=== PATIENT | female | born 1960 | race American Indian/Alaskan Native ===

== ENCOUNTER 2017-10-23 10:02 | Outpatient (CLI) | payer BC ==
--- NOTE | 2017-10-24 13:53 | Mammography Report ---
BILATERAL DIGITAL SCREENING MAMMOGRAM with CAD : 10/23/17 10:02:00 CLINICAL: Routine screening. COMPARISON:06/07/16 FINDINGS: The breasts are heterogeneously dense, which may obscure small masses.Left inner biopsy clip. No mass, architectural distortion or suspicious calcifications. IMPRESSION: No mammographic evidence of malignancy. BI-RADS CATEGORY: 2 -- Benign RECOMMENDATION: Routine mammographic screening in one year. COMMENT: Patient follow-up letters are generated by our [email or web address] application.
== END 2017-10-23 10:03 | disposition home or self-care (01) ==
LOC: SPVWC 10:02
PROVIDERS: ATTEND Internal Medicine
DX: Z12.31 Encounter for screening mammogram for malignant neoplasm of breast (principal)
CPT/HCPCS: 77067; G0202

== ENCOUNTER 2018-10-30 13:06 | Outpatient (CLI) | payer BC ==
--- NOTE | 2018-10-30 15:35 | Mammography Report ---
BILATERAL DIGITAL SCREENING MAMMOGRAM with CAD : 10/30/18 13:06:00 CLINICAL: Routine screening. COMPARISON:10/23/17 FINDINGS: The breasts are heterogeneously dense, which may obscure small masses.A left upper biopsy clip. A few scattered bilateral benign calcifications. No mass, architectural distortion or suspicious calcifications. IMPRESSION: No mammographic evidence of malignancy. BI-RADS CATEGORY: 2 -- Benign RECOMMENDATION: Routine mammographic screening in one year. COMMENT: Patient follow-up letters are generated by our [employer] application.
== END 2018-10-30 13:07 | disposition home or self-care (01) ==
LOC: SPVWC 13:06
PROVIDERS: ATTEND Internal Medicine
DX: Z12.31 Encounter for screening mammogram for malignant neoplasm of breast (principal)
CPT/HCPCS: 77067

== ENCOUNTER 2019-12-20 10:34 | Outpatient (CLI) | payer BC ==
--- NOTE | 2019-12-20 11:50 | Mammography Report ---
LEFT DIGITAL DIAGNOSTIC MAMMOGRAM WITH CAD 12/20/2019 LEFT COMPLETE BREAST ULTRASOUND INDICATION: Recall to evaluate a mammographic asymmetry with calcifications. ABNORMAL MAMMOGRAM TECHNIQUE: Digital left mammographic imaging was performed. Magnification views were obtained. Compl ete ultrasound of all four (4) quadrants was performed. This examination was interpreted with the hoda efit of Computer-Aided Detection (CAD) analysis. COMPARISON: 11/02/2019 and 10/30/2018 mammograms FINDINGS: Breast Density: The breasts are heterogeneously dense, which may obscure small masses. MAMMOGRAPHIC FINDINGS: Spot magnification views demonstrate an oval partially circumscribed mass at 6 :00. A few punctate and amorphous calcifications with benign morphology adjacent to the mass. ULTRASOUND FINDINGS: Complete sonographic evaluation of all 4 quadrants and retroareolar region was p erformed. Ultrasound demonstrated fibrocystic mass with and oval smooth anechoic cyst at 6:00 3 cm from the nipple measuring 1.3 x 0.9 x 1.5 cm. Calcifications are identified adjacent to the cyst. In addition, an irregular shadowing mass is identified at 11:00 2 cm from the nipple measuring 1.3 x 0.8 x 0.9 cm. IMPRESSION: 1. A suspicious 1.3 cm shadowing mass at 11:00 2 cm from the nipple. Recommend ultrasound-guided need le biopsy. 2. A benign fibrocystic mass with a dominant 1.3 cm cyst at 6:00 3 cm from the nipple. This correlate s with the mammographic finding identified at screening. I discussed the findings and the recommendation for needle biopsy of the left breast with the patient at the time of the exam. Follow up recommendation: Biopsy BI-RADS Category 4: Suspicious for Malignancy. A "normal" or negative report should not discourage follow up or biopsy of a clinically significant f inding. A written summary of these findings will be mailed to the patient. The patient will be entered into a mammography reporting system which will generate a reminder letter for the patient's next appointmen t at the appropriate interval. According to the [employer], yearly mammograms are recommended starting at age 40 and continuing as long as a woman is in good health. Breast MRI is recommended for women with an lalita roximately 20-25% or greater lifetime risk of breast cancer, including women with a strong family his tory of breast or ovarian cancer and women who have been treated for Hodgkin's disease. Signer Name: Alpesh Henning MD Signed: 12/20/2019 11:45 AM Workstation Name: [id number]
--- NOTE | 2019-12-20 16:04 | Ultrasound Report ---
LEFT DIGITAL DIAGNOSTIC MAMMOGRAM WITH CAD 12/20/2019 LEFT COMPLETE BREAST ULTRASOUND INDICATION: Recall to evaluate a mammographic asymmetry with calcifications. ABNORMAL MAMMOGRAM TECHNIQUE: Digital left mammographic imaging was performed. Magnification views were obtained. Comple te ultrasound of all four (4) quadrants was performed. This examination was interpreted with the bene fit of Computer-Aided Detection (CAD) analysis. COMPARISON: 11/02/2019 and 10/30/2018 mammograms FINDINGS: Breast Density: The breasts are heterogeneously dense, which may obscure small masses. MAMMOGRAPHIC FINDINGS: Spot magnification views demonstrate an oval partially circumscribed mass at 6 :00. A few punctate and amorphous calcifications with benign morphology adjacent to the mass. ULTRASOUND FINDINGS: Complete sonographic evaluation of all 4 quadrants and retroareolar region was p erformed. Ultrasound demonstrated fibrocystic mass with and oval smooth anechoic cyst at 6:00 3 cm fr om the nipple measuring 1.3 x 0.9 x 1.5 cm. Calcifications are identified adjacent to the cyst. In ad dition, an irregular shadowing mass is identified at 11:00 2 cm from the nipple measuring 1.3 x 0.8 x 0.9 cm. IMPRESSION: 1. A suspicious 1.3 cm shadowing mass at 11:00 2 cm from the nipple. Recommend ultrasoun d-guided needle biopsy. 2. A benign fibrocystic mass with a dominant 1.3 cm cyst at 6:00 3 cm from t he nipple. This correlates with the mammographic finding identified at screening. I discussed the findings and the recommendation for needle biopsy of the left breast with the patient at the time of the exam. Follow up recommendation: Biopsy BI-RADS Category 4: Suspicious for Malignancy. A "normal" or negative report should not discourage follow up or biopsy of a clinically significant f inding. A written summary of these findings will be mailed to the patient. The patient will be entered into a mammography reporting system which will generate a reminder letter for the patient's next appointmen t at the appropriate interval. According to the [employer], yearly mammograms are recommended starting at age 40 and continuing as long as a woman is in good health. Breast MRI is recommended for women with an appr oximately 20-25% or greater lifetime risk of breast cancer, including women with a strong family hist ory of breast or ovarian cancer and women who have been treated for Hodgkin's disease. Signer Name: Alpesh Henning MD Signed: 12/20/2019 4:00 PM Workstation Name: [id number]
== END 2019-12-20 10:35 | disposition home or self-care (01) ==
LOC: SPVWC 10:34
PROVIDERS: ATTEND Internal Medicine
DX: R92.8 Other abnormal and inconclusive findings on diagnostic imaging of breast (principal); N60.02 Solitary cyst of left breast

== ENCOUNTER 2020-01-10 12:33 | Outpatient (CLI) | payer BC ==
--- NOTE | 2020-01-10 13:59 | Ultrasound Report ---
DIGITAL DIAGNOSTIC MAMMOGRAM WITH CAD, 01/10/2020 INDICATION: Immediately after ultrasound-guided needle biopsy for clip placement. TECHNIQUE: Digital left mammographic imaging was performed. This examination was interpreted with the benefit of Computer-aided Detection analysis. COMPARISON: 12/20/2019 FINDINGS: Breast Density: The breasts are heterogeneously dense, which may obscure small masses. A new biopsy clip is identified in the upper inner quadrant and the clip position is concordant with the ultrasound finding. The clip is adjacent to a previously placed clip at the site of benign biopsy performed by Dr. Tom more than 5 years ago. IMPRESSION: Concordant clip placement. Follow up recommendation: No recall. Post biopsy imaging. A "normal" or negative report should not discourage follow up or biopsy of a clinically significant f inding. A written summary of these findings will be mailed to the patient. The patient will be entered into a mammography reporting system which will generate a reminder letter for the patient's next appointmen t at the appropriate interval. According to the [employer], yearly mammograms are recommended starting at age 40 and continuing as long as a woman is in good health. Breast MRI is recommended for women with an lalita roximately 20-25% or greater lifetime risk of breast cancer, including women with a strong family his tory of breast or ovarian cancer and women who have been treated for Hodgkin's disease. Signer Name: Alpesh Henning MD Signed: 01/10/2020 1:55 PM Workstation Name: [id number]
--- NOTE | 2020-01-10 14:46 | Mammography Report ---
DIGITAL DIAGNOSTIC MAMMOGRAM WITH CAD, 01/10/2020 INDICATION: Immediately after ultrasound-guided needle biopsy for clip placement. TECHNIQUE: Digital left mammographic imaging was performed. This examination was interpreted with karl marr of Computer-aided Detection analysis. COMPARISON: 12/20/2019 FINDINGS: Breast Density: The breasts are heterogeneously dense, which may obscure small masses. A new biopsy clip is identified in the upper inner quadrant and the clip position is concordant with the ultrasound finding. The clip is adjacent to a previously placed clip at the site of benign biopsy performed by Dr. Tom more than 5 years ago. IMPRESSION: Concordant clip placement. Follow up recommendation: No recall. Post biopsy imaging. A "normal" or negative report should not discourage follow up or biopsy of a clinically significant f inding. A written summary of these findings will be mailed to the patient. The patient will be entered into a mammography reporting system which will generate a reminder letter for the patient's next appointmen t at the appropriate interval. According to the [employer], yearly mammograms are recommended starting at age 40 and continuing as long as a woman is in good health. Breast MRI is recommended for women with an appr oximately 20-25% or greater lifetime risk of breast cancer, including women with a strong family hist ory of breast or ovarian cancer and women who have been treated for Hodgkin's disease. Signer Name: Alpesh Henning MD Signed: 01/10/2020 2:41 PM Workstation Name: [id number]
== END 2020-01-10 12:34 | disposition home or self-care (01) ==
LOC: SPVWC 12:33
PROVIDERS: ATTEND Internal Medicine
DX: N63.22 Unspecified lump in the left breast, upper inner quadrant (principal); R92.8 Other abnormal and inconclusive findings on diagnostic imaging of breast; R92.0 Mammographic microcalcification found on diagnostic imaging of breast; N64.89 Other specified disorders of breast
CPT/HCPCS: 88305

== ENCOUNTER 2020-11-16 15:53 | Outpatient (CLI) | payer BC ==
--- NOTE | 2020-11-17 08:23 | Mammography Report ---
DIGITAL SCREENING MAMMOGRAM WITH CAD, 11/17/2020 CLINICAL INFORMATION / INDICATION: Routine screening mammography. SCREENING MAMMO TECHNIQUE: Digital bilateral 2D mammography was obtained in the craniocaudal and mediolateral obliqu e projections. This examination was interpreted with the benefit of Computer-Aided Detection analysis . COMPARISON: 11/02/2019 FINDINGS: Breast Density: The breasts are heterogeneously dense, which may obscure small masses. No dominant mass, suspicious calcifications, or architectural distortion in either breast. Scar again noted in the right breast and biopsy change in the left breast. Largely unchanged nodular densities in the breasts, especially on the left. IMPRESSION: No mammographic evidence of malignancy. Follow up recommendation: Routine yearly BI-RADS Category 2: Benign. A "normal" or negative report should not discourage follow up or biopsy of a clinically significant f inding. A written summary of these findings will be mailed to the patient. The patient will be entered into a mammography reporting system which will generate a reminder letter for the patient's next appointmen t at the appropriate interval. The [employer] recommends yearly mammograms starting at age 40 and continuing as l nesha as a woman is in good health. Breast MRI is recommended for women with an approximate 20-25% or greater lifetime risk of breast cancer, including women with a strong family history of breast or ova yvonne cancer or who have been treated for Hodgkin's disease. Signer Name: Federico Dai MD Signed: 11/17/2020 8:19 AM Workstation Name: [id number]
== END 2020-11-16 15:54 | disposition home or self-care (01) ==
LOC: SPVWC 15:53
PROVIDERS: ATTEND Internal Medicine
DX: Z12.31 Encounter for screening mammogram for malignant neoplasm of breast (principal)
CPT/HCPCS: 77067

== ENCOUNTER 2021-12-18 15:05 | Outpatient (CLI) | payer BC ==
--- NOTE | 2021-12-19 14:56 | Mammography Report ---
DIGITAL SCREENING MAMMOGRAM WITH CAD, 12/18/2021 CLINICAL INFORMATION / INDICATION: Routine screening TECHNIQUE: Digital bilateral 2D mammography was obtained in the craniocaudal and mediolateral obliqu e projections. This examination was interpreted with the benefit of Computer-Aided Detection analysis . COMPARISON: 11/16/2020 FINDINGS: Breast Density: There are scattered areas of fibroglandular density. No dominant mass, suspicious calcifications, or architectural distortion in either breast. Surgical and biopsy changes are again seen. Calcifications and nodularity are not significantly novoa ed. IMPRESSION: No mammographic evidence of malignancy. Follow up recommendation: Routine yearly BI-RADS Category 2: BENIGN. A "normal" or negative report should not discourage follow up or biopsy of a clinically significant f inding. A written summary of these findings will be mailed to the patient. The patient will be entered into a mammography reporting system which will generate a reminder letter for the patient's next appointmen t at the appropriate interval. The [employer] recommends yearly mammograms starting at age 40 and continuing as l nesha as a woman is in good health. Breast MRI is recommended for women with an approximate 20-25% or greater lifetime risk of breast cancer, including women with a strong family history of breast or ova yvonne cancer or who have been treated for Hodgkin's disease. Signer Name: Sergio Warren MD Signed: 12/19/2021 2:51 PM Workstation Name: [id number]
== END 2021-12-18 15:06 | disposition home or self-care (01) ==
LOC: SPVWC 15:05
PROVIDERS: ATTEND Internal Medicine
DX: Z12.31 Encounter for screening mammogram for malignant neoplasm of breast (principal)
CPT/HCPCS: 77067